=== PATIENT | female | born 1990 | race Caucasian/White ===

== ENCOUNTER 2020-05-21 02:08 | Emergency (ER) | payer OTHER ==
[~2020-05-21] VITALS: Ht 175.3 cm; Wt 80.4 kg
[2020-05-21 02:10] VITALS: BP 119/69
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
[2020-05-21] MEDS ORDERED: LORazepam 0.5 MG TABLET PO ONE (03:30)
== END 2020-05-21 03:53 | disposition home or self-care (01) ==
LOC: ER 02:08 → EEVIPCON 02:08 → ER 03:53
DX: S10.81XA Abrasion of other specified part of neck, initial encounter (principal); M54.2 Cervicalgia; F32.9 Major depressive disorder, single episode, unspecified; Z90.89 Acquired absence of other organs; Y08.89XA Assault by other specified means, initial encounter; Y93.89 Activity, other specified; Y92.89 Other specified places as the place of occurrence of the external cause; Y99.8 Other external cause status
CPT/HCPCS: 81025; 99283